=== PATIENT | male | born 1995 | race Two or more races ===

== ENCOUNTER 2016-12-29 09:38 | Emergency (ER) | payer OTHER ==
[~2016-12-29] VITALS: Ht 180.3 cm; Wt 95.7 kg
[2016-12-29 10:00] VITALS: BP 135/75
== END 2016-12-29 10:10 | disposition left against medical advice (07) ==
LOC: ER 09:38
DX: F29 Unspecified psychosis not due to a substance or known physiological condition (principal); Z53.29 Procedure and treatment not carried out because of patient's decision for other reasons

== ENCOUNTER 2021-10-02 21:37 | Emergency (ER) | payer SELFPAY ==
[~2021-10-02] VITALS: Ht 177.8 cm; Wt 122.5 kg
[2021-10-02 22:54] LABS: Basophils # (auto) 0 10 ^3/uL (0-0.2); Basophils % (auto) 0.4 % (0.0-2.0); Eosinophils # (auto) 0.1 10 ^3/uL (0-0.8); Eosinophils % (auto) 1.4 % (0.0-7.0); Hematocrit 39.2 % (41.0-53.0); Lymphocytes # (auto) 2.1 10 ^3/uL (0.4-5.4); Lymphocytes % (auto) 30.9 % (10.0-50.0); Mean Corpuscular Hemoglobin 29.6 pg (28.0-32.0); Mean Corpuscular Volume 89.5 fL (80.0-100.0); Monocytes # (auto) 0.7 10 ^3/uL (0-1.3); Neutrophils # (auto) 3.8 10 ^3/uL (1.6-8.6); Neutrophils % (auto) 57.3 % (37.0-80.0); Nucleated Red Blood Cells % 0.1 %; Red Blood Cells 4.38 10^6/uL (4.5-5.90); White Blood Cell 6.7 10^3/uL (4.4-10.8)
[2021-10-02 23:16] LABS: Acetaminophen < 2.0 ug/mL (10-30); Albumin 3.2 g/dL (3.4-5.0); Anion Gap 8 (5-15); Blood Alcohol < 3.0 mg/dL (0-5); Blood Urea Nitrogen 11 mg/dL (7-18); Calcium 8.3 mg/dL (8.5-10.1); Carbon Dioxide 22 mmol/L (21-32); Chloride 108 mmol/L (98-107); Glucose 101 mg/dL (74-106); Potassium 3.1 mmol/L (3.5-5.1); Salicylate < 1.7 mg/dL (2.8-20.0); Sodium 138 mmol/L (136-145)
[2021-10-02 23:33] LABS: Alanine Aminotransferase 65 U/L (16-61); Alkaline Phosphatase 101 U/L (45-117); Aspartate Aminotransferase 49 U/L (15-37); BUN/Creatinine Ratio 17.2; Bilirubin, Total 0.6 mg/dL (0.2-1.0); Creatine Kinase IFCC 1153 U/L (39-308); GFR African American 193 mL/min; GFR Non-African American 159 mL/min; Total Protein 6.6 g/dL (6.4-8.2)
[2021-10-03] VITALS: BP 114/62
[2021-10-03] MEDS ORDERED: SODIUM CHLORIDE 0.9% 1,000 ML IV ONE ×2
[2021-10-03] MEDS ORDERED: LORazepam 2MG/ML-1ML VIAL IM ONE (01:15)
== END 2021-10-03 01:35 | disposition left against medical advice (07) ==
LOC: EDBD 21:37 → ER 21:37
DX: M62.82 Rhabdomyolysis (principal); F18.10 Inhalant abuse, uncomplicated; Z53.29 Procedure and treatment not carried out because of patient's decision for other reasons
CPT/HCPCS: 36415; 71045; 80053; 80320; 80329; 82550; 83735; 84484; 85025; 93005; 96372; 99285; J2060

== ENCOUNTER 2025-03-05 19:05 | Emergency (ER) | payer MEDICAID, OTHER ==
[~2025-03-05] VITALS: Ht 177.8 cm; Wt 120.9 kg
[2025-03-05 19:15] VITALS: BP 106/55; PULSE 76; RESP 16; TEMP 98.7; O2SAT 99
--- NOTE | 2025-03-05 22:44 | ED.PDOC ---
History of Present Illness HPI Comments 29-year-old male with past medical history of polysubstance abuse brought in by medics for agitated delirium. History is taken from the medics got the history on scene. Patient was agitated, running around a [employer] [place] which is why by bystanders called 911. Alleging that he fell, however, no signs of trauma, no other history as to how he fell. Denies any pain. Chart review shows that patient has been seen here years ago related to agitated delirium from polysubstance abuse at that time as well. Chief Complaint: Mental Health Time Seen by MD: 19:10 Allergies: Coded Allergies: NO KNOWN ALLERGIES (Unverified , 06/12/13) Mode of Arrival: EMS Past Medical History PAST MEDICAL HISTORY: Denies Surgical History: Denies all surgeries Family History Family History: Unknown Social History Smoker: Non-Smoker Alcohol: Occasionally Drugs: Methamphetamine Lives In: Unknown Constitutional: denies: chills, diaphoresis, fatigue, fever, malaise, sweats, weakness, others EENTM: denies: blurred vision, double vision, ear bleeding, ear discharge, ear drainage, ear pain, ear ringing, eye pain, eye redness, hearing loss, mouth pain, mouth swelling, nasal discharge, nose bleeding, nose congestion, nose pain, photophobia, tearing, throat pain, throat swelling, voice changes, others Respiratory: denies: cough, hemoptysis, orthopnea, SOB at rest, shortness of breath, SOB with excertion, stridor, wheezing, others Cardiovascular: denies: chest pain, dizzy spells, diaphoresis, Dyspnea on exertion, edema, irregular heart beat, left arm pain, lightheadedness, palpitations, PND, syncope, others Gastrointestinal: denies: abdomen distended, abdominal pain, blood streaked bowels, constipated, diarrhea, dysphagia, difficulty swallowing, hematemesis, melena, nausea, poor appetite, poor fluid intake, rectal bleeding, rectal pain, vomiting, others Genitourinary: denies: burning, dysuria, flank pain, frequency, hematuria, incontinence, penile discharge, penile sore, pain, testicle pain, testicle swelling, urgency, others Neurological: denies: dizziness, fainting, headache, left sided numbness, left sided weakness, numbness, paresthesia, pre-existing deficit, right sided nu mbness, right sided weakness, seizure, speech problems, tingling, tremors, weakness, others Musculoskeletal: denies: back pain, gout, joint pain, joint swelling, muscle pain, muscle stiffness, neck pain, others Integumetry: denies: bruises, change in color, change in hair/nails, dryness, laceration, lesions, lumps, rash, wounds, others Allergic/Immunocompromised: denies: Difficulty Healing, Frequent Infections, Hives, Itching, others Hematologic/Lymphatic: denies: anemia, blood clots, easy bleeding, easy bruising, swollen glands, others Endocrine: denies: excessive hunger, excessive sweating, excessive thirst, excessive urination, flushing, intolerance to cold, intolerance to heat, unexplained weight gain, unexplained weight loss, others Psychiatric: denies: anxiety, bipolar disorder, depression, hopeless, panic disorder, schizophrenia, sleepless, suicidal, others Physical Exam General Appearance: Normal, Other (Disheveled) HEENT: Normal ENT Inspection, Pharynx Normal, TMs Normal Neck: Full Range of Motion, Non-Tender, Normal, Normal Inspection Respiratory: Chest Non-Tender, Lungs Clear, No Accessory Muscle Use, No Respiratory Distress, Normal Breath Sounds Cardiovascular: No Edema, No JVD, No Murmur, No Gallop, Normal Peripheral Pulses, Regular Rate/Rhythm Breast Exam: Deferred Gastrointestinal: No Organomegaly, Non Tender, No Pulsatile Mass, Normal Bowel Sounds, Soft Genitalia: Deferred Pelvic: Deferred Rectal: Deferred Extremities: No calf tenderness, Normal capillary refill, Normal inspection, Normal range of motion, Non-tender, No pedal edema Musculoskeletal : Apperance: Normal Neurologic: Alert, bank representative II-XII nml as Tested, No Motor Deficits, Normal Affect, Normal Mood, No Sensory Deficits Cerebellar Function: Normal Reflexes: Normal Skin: Dry, Normal Color, Warm Lymphatic: No Adenopathy Was a procedure done? Was a procedure done?: No Differential Dx Considerations may include: Metabolic encephalopathy versus drug ingestion versus psychosis versus underlying psychiatric illness X-Ray, Labs, Meds, VS Vital Signs Date Time Temp Pulse Resp B/P (MAP) Pulse Ox O2 Delivery O2 Flow Rate FiO2 03/05/25 19:15 98.7 76 16 106/55 99 98.7 Time of 1ST Reevaluation: 22:40 Reevaluation 1ST: Unchanged Patient Education/Counseling: Diagnosis, Treatment, Need For Follow Up Family Education/Counseling: No Family Present SEPSIS Sepsis Screen Date sepsis recognized/suspect: Mar 05, 2025 Time Sepsis recognized/suspect: 1914 Recent Procedure: No On Antibiotic Therapy: No Respiratory Rate >20: No Heart Rate >90: No Temp<36 C (96.8 F) or >38.3 C: No SBP <90 or MAP <65 mmHG: No New Acute Mental Status Change: No Is the patient on CPAP, BIPAP,: No Vital Signs Date Time Temp Pulse Resp B/P (MAP) Pulse Ox O2 Delivery O2 Flow Rate FiO2 03/05/25 19:15 98.7 76 16 106/55 99 98.7 Departure 1 Departure Time of Disposition: 22:40 (29-year-old male with past medical history of polysubstance abuse brought in by medics for agitated delirium. Patient appears to likely be under the influence of methamphetamines or other stimulant drugs. Appears disheveled, reporting that he fell, however, no obvious signs of trauma, injury. Denying any acute bodily complaints. Patient arrives with normal vitals. Does not currently desire any medical attention at this time. Requires no labs or imaging at this time given no acute bodily complaints. Patient will be discharged.) Impression: Primary Impression: Drug abuse Additional Impression: Agitated Disposition: 01 HOME / SELF CARE / HOMELESS Condition: Stable Discharged With: Self Critical Care Note Critical Care Time?: No Stability Stability form required: PILY Mae MD Mar 05, 2025 22:44
== END 2025-03-05 23:24 | disposition home or self-care (01) ==
LOC: ER 19:05 → EDBD 19:05 → ER 23:24
DX: F19.10 Other psychoactive substance abuse, uncomplicated (principal); R45.1 Restlessness and agitation; F10.90 Alcohol use, unspecified, uncomplicated